=== PATIENT | male | born 1985 | race Caucasian/White ===

== ENCOUNTER 2017-03-24 16:31 | Emergency (ER) | payer OTHER ==
[~2017-03-24] VITALS: Ht 157.5 cm; Wt 65.0 kg
[2017-03-24 16:48] VITALS: BP 137/73; PULSE 70; RESP 16; TEMP 98.3
--- NOTE | 2017-03-24 16:54 | PD ---
HPI Chief Complaint: Laceration/Skin Injury Time Seen by Provider: 16:51 Travel History International Travel<30 days: No Contact w/Intl Traveler<30days: No Traveled to known affect area: No History of Present Illness HPI 31-year-old male brought in by the police under arrest, here for medical clearance. Patient was running from the police, when he fell and injured his right fourth and fifth digit. Patient has a laceration to the mid fifth digit and a small abrasion to the distal right pinky. Patient has full range of motion and no loss of function. He denies any other injury. Pain is a 5 out of 10. He is unsure that he ever had a tetanus shot. He has no known drug allergies. [facility] Social History Alcohol Use: Yes Tobacco Use: Yes Allergies-Medications (Allergen,Severity, Reaction): Coded Allergies: No Known Allergies (Unverified , 03/24/17) Reported Meds & Prescriptions Reported Meds & Active Scripts Active No Active Prescriptions or Reported Medications Review of Systems ROS Limitations: Language Barrier Except as stated in HPI: all other systems reviewed are Neg General / Constitutional: No: Fever Eyes: No: Visual changes HENT: No: Headaches Cardiovascular: No: Chest Pain or Discomfort Respiratory: No: Shortness of Breath Gastrointestinal: No: Abdominal Pain Genitourinary: No: Dysuria Musculoskeletal: No: Pain Skin: No Rash Neurologic: No: Weakness Psychiatric: No: Depression Endocrine: No: Polydipsia Hematologic/Lymphatic: No: Easy Bruising Physical Exam Narrative GENERAL: No acute distress. SKIN: Warm and dry. Normal color. Normal turgor. Patient has a 1.5 cm linear laceration to the right middle fourth digit, as well as a small distal abrasion to the fifth right digit. HEAD: Atraumatic. Normocephalic. Nontender. EYES: Pupils equal and round. No scleral icterus. No injection or drainage. ENT: No nasal bleeding or discharge. Mucous membranes pink and moist. Pharynx is clear. Airways patent NECK: Trachea midline. Supple and nontender CARDIOVASCULAR: Regular rate and rhythm. RESPIRATORY: No accessory muscle use. Clear to auscultation. Breath sounds equal bilaterally. MUSCULOSKELETAL: Extremities without clubbing, cyanosis, or edema. No obvious deformities. NEUROLOGICAL: Awake and alert. No obvious cranial nerve deficits. Motor grossly within normal limits. Five out of 5 muscle strength in the arms and legs. Normal speech. PSYCHIATRIC: Appropriate mood and affect; insight and judgment normal. Data Data Last Documented VS Vital Signs Date Time Temp Pulse Resp B/P (MAP) Pulse Ox O2 Delivery O2 Flow Rate FiO2 03/24/17 16:48 98.3 70 16 137/73 (94) Orders Orders Tetanus/Diphtheria Tox Adult (Tetanus/Di (03/24/17 17:00) Lidocai-Epi 2%-1:100,000 Inj (Xylocaine- (03/24/17 17:00) Lidocaine 1% Inj (50 Ml) (Xylocaine 1% I (03/24/17 16:57) Lidocai-Epi 2%-1:100,000 Inj (Xylocaine- (03/24/17 16:57) MDM Medical Decision Making Medical Screen Exam Complete: Yes Emergency Medical Condition: Yes Differential Diagnosis Fall. Laceration right fourth finger. Medical clearance for incarceration. Narrative Course Patient is medically stable at time of exam. Tetanus was given 0.5 mg IM. Laceration is repaired. Dressing is remain in place for the next 48 hours. Wound site to be kept clean and dry. Sutures should remain in place for 7 days. Patient is medically cleared for incarceration. Procedures Procedure Narrative LACERATION LOCATION: Middle palmar surface of the right fourth digit LENGTH: 1.5 cm NUMBER OF STITCHES/JOE: 3 interrupted vertical mattress REPAIR: The area of the laceration was prepped with Betadine and sterilely draped. The digital block placed with 2.5 mL 2% lidocaine with epi. The wound was copiously irrigated and explored without evidence of foreign body, tendon injury or neurovascular injury. The wound was closed using 5-0 Ethilon. This was a single layer repair. A sterile dressing was applied. The patient was advised to keep the dressing clean and dry. Patient tolerated the procedure well. Diagnosis Primary Impression: Laceration of right ring finger Qualified Codes: S61.214A - Laceration without foreign body of right ring finger without damage to nail, initial encounter Additional Impression: Medical clearance for incarceration Referrals: Primary Care Physician Patient Instructions: Finger Laceration (ED), General Instructions Med/Other Pt SpecificInfo: Wound Care Scripts No Active Prescriptions or Reported Meds Disposition: [address] LAW ENFORCEMNT Condition: Stable Arnaldo Rodríguez Mar 24, 2017 16:54
[2017-03-24] MEDS ORDERED: LIDOCAINE 2%/EPINEPHrine 1:100,000 20ML MDV ONE (16:57)
[2017-03-24] MEDS ORDERED: LIDOCAINE HCL 1% 50 ML VIAL ONE (16:57)
[2017-03-24] MEDS ORDERED: TETANUS/DIPHTHERIA TOXOID ADULT 0.5 ML VIAL IM ONE (17:00)
[2017-03-24] MEDS ORDERED: LIDOCAINE 2%/EPINEPHrine 1:100,000 50ML MDV NERV BLOCK ONE (17:00)
== END 2017-03-24 17:52 ==
LOC: NEDAMB 16:31
DX: S61.214A Laceration without foreign body of right ring finger without damage to nail, initial encounter (principal); W19.XXXA Unspecified fall, initial encounter; Y93.02 Activity, running; Z23 Encounter for immunization
CPT/HCPCS: 12001; 90471; 90714